=== PATIENT | male | born 1990 | race African-American/Black ===

== ENCOUNTER 2020-12-20 13:53 | Inpatient (IN) | payer MEDICAID ==
[~2020-12-20] VITALS: Ht 198.1 cm; Wt 72.1 kg
[2020-12-20] MEDS ORDERED: ONDANSETRON 4MG ODT PO STA (14:30)
[2020-12-20 15:02] LABS: CHLORIDE 106 mEq/L (98-107)
[2020-12-20 15:07] LABS: ETHANOL BLOOD < 10 mg/dL
[2020-12-20 15:24] LABS: BASOPHILS % 0.8 % (0.0-2.0); EOSINOPHILS % 0.1 % (0.0-5.0); HEMOGLOBIN. 15.3 g/dL (14.0-18.0); LYMPHOCYTES % 12.9 % (20.0-50.0); MEAN CORPUSCULAR HEMOGLOBIN 30.8 pg (28.0-32.0); MEAN CORPUSCULAR VOLUME 90.7 fL (80.0-94.0); MEAN PLATELET VOLUME 10.5 fl (7.4-10.4); MONOCYTES % 6.2 % (2.0-8.0); PLATELET 259 x1000/uL (130-400); RED BLOOD CELL COUNT 4.96 mill/uL (4.7-6.1)
[2020-12-20] MEDS ORDERED: ONDANSETRON HCL 4MG/2ML INJ IV STA ×2 (15:37→18:55)
[2020-12-20] MEDS ORDERED: KETOROLAC 30MG/ML VIAL IV STA (15:37)
[2020-12-20] MEDS ORDERED: SODIUM CHLORIDE 0.9% 1,000 ML IV ONE (15:45)
[2020-12-20 17:19] LABS: CLARITY URINE CLEAR (CLEAR); COLOR URINE YELLOW (YELLOW); KETONES URINE 3+ (NEGATIVE); LEUKOCYTE ESTERASE URINE 1+ (NEGATIVE); NITRITE URINE NEGATIVE (NEGATIVE); OCCULT BLOOD URINE NEGATIVE (NEGATIVE); PH URINE 8.5 (4.5-8.0); PROTEIN URINE 1+ (NEGATIVE); SPECIFIC GRAVITY URINE 1.027 (1.005-1.030)
[2020-12-20 17:26] LABS: *AMPHETAMINES SCREEN URINE NEGATIVE (NEGATIVE); *BARBITURATES SCREEN URINE NEGATIVE (NEGATIVE); CANNABINOID URINE SCREEN PRESUMTIVE POSITIVE (NEGATIVE); METHADONE URINE SCREEN NEGATIVE (NEGATIVE); OPIATES URINE SCREEN NEGATIVE (NEGATIVE); PHENCYCLIDINE URINE SCREEN NEGATIVE (NEGATIVE)
[2020-12-20 17:27] LABS: *BENZODIAZEPINES SCREEN URINE NEGATIVE (NEGATIVE); *COCAINE SCREEN URINE NEGATIVE (NEGATIVE)
[2020-12-20] MEDS ORDERED: METRONIDAZOLE 500 MG PREMIX 100 ML IV ONE (18:15)
[2020-12-20] MEDS ORDERED: CEFTRIAXONE 1 G PREMIX 50 ML IV ONE (18:15)
[2020-12-20] MEDS ORDERED: LEVOFLOXACIN 750MG PREMIX 150 ML IV ONE (18:15)
[2020-12-20] MEDS ORDERED: AZITHROMYCIN 500 MG in DEXT 5% WATER 250 ML IV ONE (18:15)
[2020-12-20] MEDS ORDERED: MORPHINE SULFATE 4 MG/ML CPJ (NOT FOR IM USE) IV STA (18:55)
[2020-12-20] MEDS ORDERED: IPRATROPIUM/ALBUTEROL 0.5-3(2.5)MG/3ML NEB HHN PRN (21:00)
[2020-12-20] MEDS ORDERED: ACETAMINOPHEN 650MG SUPP PR PRN (21:00)
[2020-12-20] MEDS ORDERED: LORAZEPAM 0.5MG TABLET PO PRN (21:00)
[2020-12-20] MEDS ORDERED: ACETAMINOPHEN 325MG TABLET PO PRN ×2 (21:00)
[2020-12-20] MEDS ORDERED: DOCUSATE SODIUM 100MG CAPSULE PO PRN (21:00)
[2020-12-20] MEDS ORDERED: CLONIDINE 0.1MG TABLET PO PRN (21:00)
[2020-12-20] MEDS ORDERED: DIPHENHYDRAMINE 50MG/ML VIAL IV PRN (21:00)
[2020-12-20] MEDS ORDERED: MAGNESIUM/ALUMINUM HYDROXIDE/SIMETHICONE 30ML UDC PO PRN (21:00)
[2020-12-20] MEDS ORDERED: ONDANSETRON HCL 4MG/2ML INJ IV PRN (21:00)
[2020-12-20] MEDS ORDERED: GUAIFENESIN 200MG/10ML SUGAR FREE UDC PO PRN (21:00)
[2020-12-20] MEDS: HYDROCODONE/ACETAMINOPHEN 5/325MG TABLET PO PRN (21:13)
[2020-12-20] MEDS ORDERED: MORPHINE SULFATE 2 MG/ML CPJ (NOT FOR IM USE) IV NR (21:44)
[2020-12-20] MEDS ORDERED: IOHEXOL-300 100 ML BOTTLE ONE (23:01)
[2020-12-21] MEDS ORDERED: MORPHINE SULFATE 2 MG/ML CPJ (NOT FOR IM USE) IV NR
[2020-12-21] MEDS: METOCLOPRAMIDE HCL 10MG/2ML VIAL IV PRN ×2 (00:11→12:44)
[2020-12-21 00:48] VITALS: BP 141/66
[2020-12-21] MEDS ORDERED: DOXY-326 PO (01:05)
[2020-12-21 04:00] VITALS: BP 105/53
[2020-12-21] MEDS: MORPHINE SULFATE 2 MG/ML CPJ (NOT FOR IM USE) IV PRN ×2 (04:18→08:27)
[2020-12-21 07:44] LABS: HEMATOCRIT. 44.6 % (42.0-52.0); HEMOGLOBIN. 15.3 g/dL (14.0-18.0); MEAN CORPUSCULAR HEMOGLOBIN 31.1 pg (28.0-32.0); MEAN CORPUSCULAR VOLUME 90.9 fL (80.0-94.0); MEAN PLATELET VOLUME 10.5 fl (7.4-10.4); PLATELET 288 x1000/uL (130-400); RED CELL DISTRIBUTION WIDTH 13.5 % (11.6-14.6)
[2020-12-21 07:57] LABS: CHLORIDE 105 mEq/L (98-107)
[2020-12-21 08:00] VITALS: BP 131/63
[2020-12-21 08:07] LABS: CREATINE KINASE 453 IU/L (39-308); LDL CHOLESTEROL 77 mg/dL (5-100)
[2020-12-21 08:08] LABS: HDL CHOLESTEROL 64 mg/dL (40-59); T4 FREE 1.23 ng/dL (0.76-1.46)
[2020-12-21] MEDS: PANTOPRAZOLE SODIUM 40 MG/VIAL IV SCH (08:26)
[2020-12-21] MEDS: DEXT 5%/LACTATED RINGERS 1,000 ML IV SCH ×2 (10:24→20:40)
[2020-12-21 11:52] VITALS: BP 98/47
[2020-12-21] MEDS: HYDROCODONE/ACETAMINOPHEN 5/325MG TABLET PO PRN (12:43)
[2020-12-21 15:54] VITALS: BP 121/63
[2020-12-21 19:41] LABS: PLATELET ESTIMATE NORMAL
[2020-12-21 20:00] VITALS: BP 115/55
[2020-12-21] MEDS ORDERED: CEFTRIAXONE 1,000 MG in DEXTROSE 5% WATER 50 ML IV SCH (20:00)
[2020-12-22] VITALS: BP 111/66
[2020-12-22 04:00] VITALS: BP 118/68
[2020-12-22] MEDS: DEXT 5%/LACTATED RINGERS 1,000 ML IV SCH (07:03)
[2020-12-22 08:00] VITALS: BP 123/62
[2020-12-22 08:22] LABS: BASOPHILS % 1.1 % (0.0-2.0); EOSINOPHILS % 0.7 % (0.0-5.0); HEMOGLOBIN. 14.6 g/dL (14.0-18.0); LYMPHOCYTES % 22.4 % (20.0-50.0); MEAN CORPUSCULAR VOLUME 91.3 fL (80.0-94.0); MEAN PLATELET VOLUME 10.5 fl (7.4-10.4); MONOCYTES % 10.1 % (2.0-8.0); NEUTROPHILS % 65.7 % (40.0-76.0); PLATELET 251 x1000/uL (130-400); RED BLOOD CELL COUNT 4.71 mill/uL (4.7-6.1); RED CELL DISTRIBUTION WIDTH 13.1 % (11.6-14.6)
[2020-12-22 08:48] LABS: CHLORIDE 108 mEq/L (98-107)
[2020-12-22] MEDS ORDERED: AZITHROMYCIN 250 MG TABLET PO SCH (09:00)
[2020-12-22] MEDS ORDERED: LEVO500T89 MT (10:39)
[2020-12-22] MEDS: PANTOPRAZOLE SODIUM 40 MG/VIAL IV SCH (10:41)
[2020-12-22 12:00] VITALS: BP 121/65
[2020-12-22 15:35] VITALS: BP 121/65
== END 2020-12-22 16:00 | disposition home or self-care (01) | DRG 720 ==
LOC: ER 13:53 → 7WST 20:05 → EDBEDREQTM 20:08 → EDBEDREQ 20:08 → ENRESERV 21:28 → 8WST 12-22 05:02
PROVIDERS: ADMIT Family Medicine Adult Medicine; ATTEND Family Medicine Adult Medicine
DX: A41.9 Sepsis, unspecified organism (principal); J15.9 Unspecified bacterial pneumonia; N39.0 Urinary tract infection, site not specified; F12.90 Cannabis use, unspecified, uncomplicated; Z20.822 Contact with and (suspected) exposure to COVID-19; K52.9 Noninfective gastroenteritis and colitis, unspecified; Z79.899 Other long term (current) drug therapy
CPT/HCPCS: 36415; 71045; 74177; 80048; 80053; 80061; 80305; 80320; 81003; 82550; 82728; 83615; 83880; 84145; 84439; 84443; 84484; 85025; 85384; 86140; 93005; 99285; C9113; J0456; J0696; J1885; J1956; J2270; J2405; J2765; J3490; J7030; J7060; J7121; Q0162; Q9967; U0003; U0005; G0480

== ENCOUNTER 2022-12-02 09:56 | Inpatient (IN) | payer OTHER, MEDICAID ==
[~2022-12-02] VITALS: Ht 193 cm; Wt 73.5 kg
[~2022-12-02 09:56] MED LIST: DOXY-456 PO; LEVO-65 MT
[2022-12-02] MEDS ORDERED: SODIUM CHLORIDE 0.9% 1,000 ML IV ONE (10:30)
[2022-12-02] MEDS ORDERED: MORPHINE SULFATE 4 MG/ML CPJ (NOT FOR IM USE) IV ONE ×2 (10:45→13:30)
[2022-12-02] MEDS ORDERED: ONDANSETRON HCL 4MG/2ML INJ IV ONE (10:45)
[2022-12-02 11:09] LABS: BASOPHILS % 0.3 % (0.0-2.0); EOSINOPHILS % 1.7 % (0.0-5.0); HEMATOCRIT. 44.6 % (42.0-52.0); LYMPHOCYTES % 10.8 % (20.0-50.0); MEAN CORPUSCULAR HEMOGLOBIN 30.9 pg (28.0-32.0); MEAN PLATELET VOLUME 10.1 fl (7.4-10.4); MONOCYTES % 4.8 % (2.0-8.0); NEUTROPHILS % 82.4 % (40.0-76.0); PLATELET 316 x1000/uL (130-400); RED BLOOD CELL COUNT 4.85 mill/uL (4.7-6.1); RED CELL DISTRIBUTION WIDTH 13.4 % (11.6-14.6)
[2022-12-02 11:19] LABS: CHLORIDE 100 mEq/L (98-107)
[2022-12-02 11:26] LABS: AMYLASE 131 IU/L (25-115)
[2022-12-02 11:26] LABS: ETHANOL BLOOD < 10 mg/dL (-10); PHOSPHORUS 2.4 mg/dL (2.5-4.9)
[2022-12-02] MEDS ORDERED: POTASSIUM PHOS,M-BASIC-D-BASIC 30 MMOL in DEXT 5% WATER 500 ML IV ONE (12:00)
[2022-12-02] MEDS ORDERED: MORPHINE SULFATE 4 MG/ML CPJ (NOT FOR IM USE) IV NR (16:30)
[2022-12-02] MEDS ORDERED: GUAIFENESIN 200MG/10ML SUGAR FREE UDC PO PRN (17:30)
[2022-12-02] MEDS ORDERED: PIPERACILLIN/TAZ 3.375G PREMIX 50 ML IV NR (17:30)
[2022-12-02] MEDS ORDERED: ACETAMINOPHEN 325MG TABLET PO PRN ×2 (17:30)
[2022-12-02] MEDS ORDERED: CLONIDINE 0.1MG TABLET PO PRN (17:30)
[2022-12-02] MEDS ORDERED: IPRATROPIUM/ALBUTEROL 0.5-3(2.5)MG/3ML NEB HHN PRN (17:30)
[2022-12-02] MEDS ORDERED: DOCUSATE SODIUM 100MG CAPSULE PO PRN (17:30)
[2022-12-02] MEDS ORDERED: VANCOMYCIN 1.5GM/250ML IVPB 250 ML IV NR (17:45)
[2022-12-02 18:00] VITALS: BP 144/67; PULSE 57; RESP 20; TEMP 98.1
[2022-12-02 18:11] LABS: T4 FREE 1.2 ng/dL (0.76-1.46)
[2022-12-02 20:00] VITALS: BP_SYST 112; BP_SYST 99; BP_DIAS 52; BP_DIAS 56; PULSE 54; PULSE 57; RESP 18; TEMP 97.5; TEMP 97.6
[2022-12-02] MEDS ORDERED: ACETAMINOPHEN 650MG SUPP PR NR (20:28)
[2022-12-02] MEDS: ENOXAPARIN 40MG/0.4ML SYR SUBCUT SCH (21:03)
[2022-12-02] MEDS: ONDANSETRON HCL 4MG/2ML INJ IV PRN (21:03)
[2022-12-03] VITALS: BP 105/77; PULSE 54; RESP 19; TEMP 98.3
[2022-12-03] MEDS: PIPERACILLIN/TAZOBACTAM 3.375G in DEXT 5% WATER 50ML IV SCH ×3 (00:29→13:23)
[2022-12-03 02:42] LABS: CREATINE KINASE 149 IU/L (39-308); CREATINE KINASE MB FRACTION < 1.0 ng/mL (0.5-3.6)
[2022-12-03] MEDS ORDERED: VANCOMYCIN 750MG PREMIX 150 ML IV SCH ×2 (03:00→10:00)
[2022-12-03] MEDS: ONDANSETRON HCL 4MG/2ML INJ IV PRN ×5 (03:50→22:13)
[2022-12-03 04:00] VITALS: BP 99/62; PULSE 73; RESP 20; TEMP 97.6
[2022-12-03 06:07] LABS: CREATINE KINASE 153 IU/L (39-308); CREATINE KINASE MB FRACTION < 1.0 ng/mL (0.5-3.6)
[2022-12-03] MEDS: DEXT 5%/0.9% NACL 1,000 ML IV SCH ×3 (06:50→20:10)
[2022-12-03 08:03] VITALS: BP 118/66; PULSE 46; RESP 18; TEMP 98.1
[2022-12-03] MEDS: LORAZEPAM 0.5MG TABLET PO PRN ×2 (08:35→14:57)
[2022-12-03] MEDS: PANTOPRAZOLE SODIUM 40 MG/VIAL IV SCH ×2 (08:35→09:00)
[2022-12-03 11:43] VITALS: BP 112/57; PULSE 67; RESP 20; TEMP 98.7
[2022-12-03 11:50] LABS: CLARITY URINE CLEAR (CLEAR); COLOR URINE DARK YELLOW (YELLOW); KETONES URINE 1+ (NEGATIVE); LEUKOCYTE ESTERASE URINE NEGATIVE (NEGATIVE); NITRITE URINE NEGATIVE (NEGATIVE); OCCULT BLOOD URINE NEGATIVE (NEGATIVE); PROTEIN URINE 2+ (NEGATIVE)
[2022-12-03 12:06] LABS: HEMATOCRIT. 44.4 % (42.0-52.0); HEMOGLOBIN. 15.4 g/dL (14.0-18.0); MEAN CORPUSCULAR HEMOGLOBIN 31.3 pg (28.0-32.0); MEAN CORPUSCULAR VOLUME 90.2 fL (80.0-94.0); MEAN PLATELET VOLUME 9.7 fl (7.4-10.4); PLATELET 303 x1000/uL (130-400); RED BLOOD CELL COUNT 4.93 mill/uL (4.7-6.1); RED CELL DISTRIBUTION WIDTH 13.4 % (11.6-14.6)
[2022-12-03 12:33] LABS: *AMPHETAMINES SCREEN URINE NEGATIVE (NEGATIVE); *BARBITURATES SCREEN URINE NEGATIVE (NEGATIVE); *BENZODIAZEPINES SCREEN URINE NEGATIVE (NEGATIVE); *COCAINE SCREEN URINE NEGATIVE (NEGATIVE); CANNABINOID URINE SCREEN PRESUMTIVE POSITIVE (NEGATIVE); METHADONE URINE SCREEN NEGATIVE (NEGATIVE); OPIATES URINE SCREEN PRESUMTIVE POSITIVE (NEGATIVE); PHENCYCLIDINE URINE SCREEN NEGATIVE (NEGATIVE)
[2022-12-03 14:30] LABS: PLATELET ESTIMATE NORMAL
[2022-12-03 15:28] LABS: CHLORIDE 99 mEq/L (98-107)
[2022-12-03 15:34] LABS: PHOSPHORUS 4.7 mg/dL (2.5-4.9)
[2022-12-03 16:00] VITALS: BP 106/55; PULSE 70; RESP 18; TEMP 98.8
[2022-12-03 20:00] VITALS: BP 108/69; PULSE 55; RESP 18; TEMP 98.5
[2022-12-03] MEDS: ENOXAPARIN 40MG/0.4ML SYR SUBCUT SCH (20:49)
[2022-12-03] MEDS ORDERED: ZOLPIDEM TARTRATE 5MG TABLET PO NR (23:30)
[2022-12-04] VITALS: BP 122/58; PULSE 50; RESP 18; TEMP 98.6
[2022-12-04] MEDS: ONDANSETRON HCL 4MG/2ML INJ IV PRN ×2 (02:16→06:19)
[2022-12-04 04:00] VITALS: BP 114/81; PULSE 48; RESP 18; TEMP 98.2
[2022-12-04 08:00] VITALS: BP 138/62; PULSE 48; RESP 20; TEMP 98.6
[2022-12-04] MEDS: PANTOPRAZOLE SODIUM 40 MG/VIAL IV SCH (08:19)
[2022-12-04 09:06] LABS: HEMATOCRIT 41.1 % (42.0-52.0); MEAN CORPUSCULAR HEMOGLOBIN 30.8 pg (28.0-32.0); MEAN CORPUSCULAR VOLUME 90.5 fL (80.0-94.0); PLATELET 282 x1000/uL (130-400); RED BLOOD CELL COUNT 4.54 mill/uL (4.7-6.1); RED CELL DISTRIBUTION WIDTH 13.3 % (11.6-14.6)
[2022-12-04 09:23] VITALS: BP 127/59; PULSE 60; TEMP 97.9; O2SAT 100
[2022-12-04 09:28] LABS: CHLORIDE 105 mEq/L (98-107)
[2022-12-04] MEDS ORDERED: ONDANSETRON HCL 4MG/2ML INJ IV PRN ×2 (09:30→12:15)
[2022-12-04 09:38] LABS: PHOSPHORUS 2.7 mg/dL (2.5-4.9)
[2022-12-04] MEDS: DEXT 5%/0.9% NACL 1,000 ML IV SCH (09:56)
[2022-12-04] MEDS ORDERED: POTASSIUM CHLORIDE 20MEQ/PACKET PO SCH (11:00)
[2022-12-04 11:46] VITALS: BP 130/47; PULSE 50; RESP 20; TEMP 98.6
== END 2022-12-04 13:44 | disposition home or self-care (01) | DRG 871 ==
LOC: ER 10:13 → EDBEDREQTM 16:53 → EDBEDREQ 16:53 → 7WST 18:02
PROVIDERS: ADMIT Internal Medicine; ATTEND Internal Medicine
DX: A41.9 Sepsis, unspecified organism (principal); K85.90 Acute pancreatitis without necrosis or infection, unspecified; E87.20 Acidosis, unspecified; E83.39 Other disorders of phosphorus metabolism; E87.6 Hypokalemia; K52.9 Noninfective gastroenteritis and colitis, unspecified; R94.31 Abnormal electrocardiogram [ECG] [EKG]; F17.200 Nicotine dependence, unspecified, uncomplicated; R73.9 Hyperglycemia, unspecified; R00.1 Bradycardia, unspecified; F12.90 Cannabis use, unspecified, uncomplicated; Z79.2 Long term (current) use of antibiotics; Z79.899 Other long term (current) drug therapy
CPT/HCPCS: 36415; 71045; 74177; 76705; 80053; 80061; 80202; 80305; 80320; 81003; 82150; 82550; 82553; 82607; 82746; 82962; 83036; 83605; 83735; 83880; 84100; 84145; 84439; 84443; 84484; 85025; 85027; 93005; 93306; 93970; 99285; C9113; J1650; J2270; J2405; J2543; J3370; J3490; J7030; J7060; G0480

== ENCOUNTER 2024-02-12 13:52 | Emergency (ER) | payer OTHER ==
[~2024-02-12] VITALS: Ht 180.3 cm; Wt 75.0 kg
[~2024-02-12 13:52] MED LIST changes: +BUPR-113 PO; -DOXY-456 PO; +GABA-529 PO; +LURA40TA4 PO; +ONDA-241 PO
[2024-02-12 13:59] VITALS: O2SAT 98
[2024-02-12] MEDS: KETOROLAC 30MG/ML VIAL IV STA (14:33)
[2024-02-12] MEDS: ONDANSETRON HCL 4MG/2ML INJ IV STA ×2 (14:33→21:22)
[2024-02-12] MEDS: SODIUM CHLORIDE 0.9% 1,000 ML IV ONE (14:33)
[2024-02-12 16:12] LABS: HEMATOCRIT. 42.7 % (42.0-52.0); HEMOGLOBIN. 14.3 g/dL (14.0-18.0); MEAN CORPUSCULAR HEMOGLOBIN 30.9 pg (28.0-32.0); MEAN CORPUSCULAR HGB CONC 33.4 g/dL (31.0-37.0); MEAN CORPUSCULAR VOLUME 92.5 fL (80.0-94.0); MEAN PLATELET VOLUME 10.6 fl (7.4-10.4); PLATELET 277 x1000/uL (130-400); RED BLOOD CELL COUNT 4.61 mill/uL (4.7-6.1); RED CELL DISTRIBUTION WIDTH 13.5 % (11.6-14.6); WHITE BLOOD COUNT 15.3 x1000/uL (4.5-11.0)
[2024-02-12 16:13] LABS: DIFFERENTIAL COMMENT 1
[2024-02-12 16:19] LABS: CHLORIDE 104 mEq/L (98-107); POTASSIUM 4.3 mEq/L (3.5-5.1); SODIUM 138 mEq/L (136-145)
[2024-02-12 16:20] LABS: CALCIUM 9.7 mg/dL (8.7-10.4); CARBON DIOXIDE 22 mEq/L (21-32)
[2024-02-12 16:25] LABS: CREATININE 1.3 mg/dL (0.6-1.3); GLUCOSE 134 mg/dL (70-105); UREA NITROGEN BLOOD 13 mg/dL (9-23)
[2024-02-12 16:27] LABS: ALANINE AMINOTRANSFERASE 22 IU/L (10-49); ALBUMIN 4.9 g/dL (3.2-4.8); ASPARTATE AMINOTRANSFERASE 26 IU/L (<34)
[2024-02-12 16:28] LABS: BILIRUBIN DIRECT 0.2 mg/dL (<=3.0); BILIRUBIN TOTAL 0.5 mg/dL (0.1-1.0); PROTEIN TOTAL 7.8 g/dL (6.0-8.3)
[2024-02-12 16:40] LABS: PLATELET ESTIMATE NORMAL
[2024-02-12] MEDS: METOCLOPRAMIDE HCL 10MG/2ML VIAL IV ONE (17:47)
[2024-02-12] MEDS: HALOPERIDOL LACTATE 5MG/ML VIAL IM ONE (17:47)
[2024-02-12] MEDS: CAPSAICIN 0.075% CREAM 57GM TOP PRN (18:59)
[2024-02-12] MEDS ORDERED: OMEP40CA20 MT (20:43)
[2024-02-12] MEDS ORDERED: ONDA4TAB50 MT (20:43)
[2024-02-12] MEDS: MORPHINE SULFATE 4 MG/ML INJ (FOR IV/IM USE) IV STA (21:22)
[2024-02-12 21:24] VITALS: BP 127/66; PULSE 60; RESP 18; TEMP 36.66960; O2SAT 99
== END 2024-02-12 21:26 | disposition home or self-care (01) ==
LOC: ER 13:52
DX: R10.9 Unspecified abdominal pain (principal); Z79.899 Other long term (current) drug therapy
CPT/HCPCS: 80076; 80048; 83690; 85025; 36415; 74176; 96361; 96374; 96375; 96376; 99291; J1630; J1885; J2765; J2405; J2270; J7030; Z7610 ×4

== ENCOUNTER 2025-03-22 23:15 | Emergency (ER) | payer OTHER ==
[~2025-03-22] VITALS: Ht 182.9 cm; Wt 87.0 kg
[~2025-03-22 23:15] MED LIST changes: -LEVO-65 MT; +OMEP40CA20 MT; +ONDA4TAB50 MT; +THIA100T72 PO
[2025-03-22 23:16] VITALS: O2SAT 99
[2025-03-23 00:24] LABS: BASOPHILS % 1.0 % (0.0-2.0); EOSINOPHILS % 0.6 % (0.0-5.0); HEMATOCRIT. 43.4 % (42.0-52.0); HEMOGLOBIN. 14.4 g/dL (14.0-18.0); LYMPHOCYTES % 19.1 % (20.0-50.0); MEAN PLATELET VOLUME 10.1 fl (7.4-10.4); MONOCYTES % 6.8 % (2.0-8.0); NEUTROPHILS % 72.5 % (40.0-76.0); PLATELET 380 x1000/uL (130-400); RED BLOOD CELL COUNT 4.82 mill/uL (4.7-6.1); RED CELL DISTRIBUTION WIDTH 14.4 % (11.6-14.6)
[2025-03-23 00:37] LABS: CREATININE 1.3 mg/dL (0.6-1.3); UREA NITROGEN BLOOD < 5 mg/dL (9-23)
[2025-03-23 00:39] LABS: ASPARTATE AMINOTRANSFERASE 26 IU/L (<34); BILIRUBIN DIRECT 0.1 mg/dL (<=3.0); BILIRUBIN TOTAL 0.6 mg/dL (0.1-1.0); PROTEIN TOTAL 8.2 g/dL (6.0-8.3)
[2025-03-23] MEDS: SODIUM CHLORIDE 0.9% 1,000 ML IV ONE (00:42)
[2025-03-23] MEDS: KETOROLAC 15MG/ML VIAL IV ONE ×2 (00:54→02:41)
[2025-03-23] MEDS: ONDANSETRON HCL 4MG/2ML INJ IV ONE (00:56)
[2025-03-23] MEDS: PANTOPRAZOLE SODIUM 40 MG/VIAL IV ONE (01:01)
[2025-03-23] MEDS: HALOPERIDOL LACTATE 5MG/ML VIAL IM ONE (01:10)
[2025-03-23] MEDS: HALOPERIDOL LACTATE 5MG/ML VIAL IM NR (01:31)
[2025-03-23 02:00] LABS: CLARITY URINE CLEAR (CLEAR); COLOR URINE YELLOW (YELLOW); GLUCOSE URINE NEGATIVE (NEGATIVE); KETONES URINE NEGATIVE (NEGATIVE); LEUKOCYTE ESTERASE URINE NEGATIVE (NEGATIVE); NITRITE URINE NEGATIVE (NEGATIVE); OCCULT BLOOD URINE NEGATIVE (NEGATIVE); PH URINE 8.5 (4.5-8.0); PROTEIN URINE NEGATIVE (NEGATIVE); SPECIFIC GRAVITY URINE 1.008 (1.005-1.030); UROBILINOGEN URINE 0.2 E.U./dL (0.2-1.0)
[2025-03-23 02:17] LABS: *AMPHETAMINES SCREEN URINE NEGATIVE (NEGATIVE); *BENZODIAZEPINES SCREEN URINE NEGATIVE (NEGATIVE)
[2025-03-23 02:19] LABS: *BARBITURATES SCREEN URINE NEGATIVE (NEGATIVE); *COCAINE SCREEN URINE NEGATIVE (NEGATIVE); CANNABINOID URINE SCREEN PRESUMPTIVE POSITIVE (NEGATIVE); ECSTASY MDMA SCREEN URINE NEGATIVE (NEGATIVE); METHADONE URINE SCREEN NEGATIVE (NEGATIVE); OPIATES URINE SCREEN NEGATIVE (NEGATIVE); PHENCYCLIDINE URINE SCREEN NEGATIVE (NEGATIVE)
[2025-03-23 02:32] LABS: TROPONIN I HIGH SENSITIVITY 13 ng/L (3.0-53)
[2025-03-23] MEDS: METOCLOPRAMIDE HCL 10MG/2ML VIAL IV ONE (02:39)
[2025-03-23 05:10] VITALS: BP 104/50; PULSE 57; RESP 17; TEMP 36.9; O2SAT 99
== END 2025-03-23 05:38 | disposition short-term general hospital (02) ==
LOC: ER 23:15 → CMPBEDREQ 03-23 07:23
DX: R11.2 Nausea with vomiting, unspecified (principal); R10.13 Epigastric pain; F12.90 Cannabis use, unspecified, uncomplicated; Z79.899 Other long term (current) drug therapy
CPT/HCPCS: 36415 ×2; 71045; 93005; 99285; 80076; 80305; 80048; 81003; 80320; 83690; 85025; 84484; 74176; 96361; 96372; 96374; 96375; 96376; J7030; J1630; J1885; J2765; J2405; J2470; G0480